=== PATIENT | female | born 1970 | race Caucasian/White ===

== ENCOUNTER → 2020-08-23 14:34 | Outpatient (BNVA) | payer OTHER, SELFPAY | PROVIDERS: PCP Pediatrics; Referring Provider Pediatrics; Visit Provider Surgery | DX: K64.4 Residual hemorrhoidal skin tags (principal); K64.8 Other hemorrhoids | CPT/HCPCS: 46600; 99212 ==

== ENCOUNTER 2022-10-30 12:34 | Outpatient (REF) | payer OTHER, SELFPAY ==
--- NOTE | ~2022-10-30 | US_ITS ---
EXAMINATION: US ABDOMEN COMPLETE CLINICAL INFORMATION: Right upper quadrant pain. Gallstones. COMPARISON: None TECHNIQUE: Real-time imaging of the abdominal viscera. FINDINGS: PANCREAS: Normal. ABDOMINAL AORTA: The proximal, mid, and distal segments are normal in caliber. INFERIOR VENA CAVA: Visualized portions are normal. LIVER: Normal hepatic size and contour. There is increased hepatic echogenicity and sound attenuation consistent with diffuse hepatic steatosis. No focal hepatic lesion. There is no intrahepatic biliary duct dilatation seen. GALLBLADDER: Echogenic bile or sludge is seen within the gallbladder. There are mobile shadowing gallstones as well. The gallbladder wall is thickened to 4 mm. No reported sonographic Gomez's sign however. COMMON BILE DUCT: Normal in caliber measuring 0.6 cm in diameter. RIGHT KIDNEY: Normal. No hydronephrosis. No renal calculi or focal parenchymal lesions. The kidney measures 12.5 cm in maximum dimension. LEFT KIDNEY: Normal. No hydronephrosis. No renal calculi or focal parenchymal lesions. The kidney measures 10.3 cm in maximum dimension. SPLEEN: Normal. The spleen measures 8.8 cm in maximum dimension. FREE FLUID: None. US/US abdomen complete IMPRESSION: There are mobile gallstones and dependent echogenic bile or sludge. The gallbladder wall is thickened to 4 mm although this may be due to underdistention. No pericholecystic inflammatory changes or reported sonographic Gomez sign to suggest acute cholecystitis. Suspect diffuse hepatic steatosis as well.
== END 2022-10-30 12:35 | disposition home or self-care (01) ==
LOC: HO.US 12:34
PROVIDERS: Visit Provider Internal Medicine
DX: R10.11 Right upper quadrant pain (principal); K80.20 Calculus of gallbladder without cholecystitis without obstruction
CPT/HCPCS: 76700